=== PATIENT | male | born 1965 | race Caucasian/White ===

== ENCOUNTER 2024-01-19 14:06 | Outpatient (REF) | payer OTHER, SELFPAY ==
--- NOTE | ~2024-01-19 | XR_ITS ---
EXAMINATION: XR SHOULDER, RIGHT CLINICAL INFORMATION: M25.511 - Pain in right shoulder COMPARISON: None available. TECHNIQUE: Two views of the right shoulder. FINDINGS: Normal bony mineralization. No fracture, dislocation, or suspicious bone lesion. Normal alignment. Glenohumeral joint appears normal. Humeral head is normal in contour. Moderate spurring of the AC joint predominantly superiorly with minimal undersurface spurring. No outlet impingement. The subacromial space is preserved. There is a laterally mildly downsloping acromion. Remainder of the soft tissue and bony structures appear normal. XR/XR shoulder RT min 2V IMPRESSION: 1. Moderate hypertrophic arthropathy of the AC joint with from a superior surface spurring. 2. No acute findings of the right shoulder. Remainder of the exam is normal. Electronically signed by: Lele Sarabia MD 03/28/2024 09:59 AM [facility]
== END 2024-01-19 14:07 | disposition home or self-care (01) ==
LOC: HO.HOSX 14:06
PROVIDERS: PCP Internal Medicine; Visit Provider Orthopaedic Surgery
DX: M25.511 Pain in right shoulder (principal)
CPT/HCPCS: 20610; 73030; J1010

== ENCOUNTER → 2024-01-19 14:10 | Outpatient (BNV) | payer OTHER, SELFPAY | PROVIDERS: PCP Internal Medicine; Visit Provider Radiology Diagnostic Radiology | DX: M19.012 Primary osteoarthritis, left shoulder (principal) | CPT/HCPCS: 73030 ==

== ENCOUNTER 2024-01-19 14:36 | Outpatient (AMB) | payer OTHER, SELFPAY ==
--- NOTE | 2024-01-19 14:38 | MHC.OFFVIS ---
Intake Visit Reasons: Right shoulder pain and weakness Intake Note: Bryan is a 58 year old male who presents with complaints of progressively worsening right shoulder pain and weakness. He did undergo right shoulder arthroscopic surgery approximately 5 years ago. He got fairly good relief from that surgery initially. The patient states that he reaggravated his right shoulder several months ago. Since that time his symptoms have gotten worse. He reports weakness when lifting his right hand above shoulder height. He has tried Tylenol and anti-inflammatory medicines which gave him minimal relief. He has had cortisone injections in the past which gave him only temporary relief. He has also done physical therapy exercises which aggravated his pain. Allergies No Known Allergies Allergy (Verified 01/19/24 14:43) Medication List - Last Reconciled 01/19/24 by Isaac Osuna MD No Known Home Meds Physical Exam Const Other: Well-nourished well-developed very friendly male awake alert and oriented x3 in no acute distress Extrem Other: Bilateral upper extremity examination shows good capillary refill, no skin lesions noted, normal sensation light touch Right shoulder examination shows decreased range of motion when compared to his left shoulder, 4+ out of 5 strength with supraspinatus testing, positive impingement signs, tenderness over his acromioclavicular joint, no instability Office Procedures Joint Injection/Aspiration Joint Injection/Aspiration Primary Site: right shoulder Prep: site was prepped using aseptic technique Injected: 40 mg of, DepoMedrol and 1% plain lidocaine Procedure: The patient tolerated the procedure well Coding 21670 - Large joint Procedure code (CPT) selection complete Results Reviewed Results Reviewed: X-rays of the patient's right shoulder show severe acromioclavicular joint narrowing, a type 2 acromion, no acute bony abnormalities Assessment & Plan Assessment & Plan (1) Right shoulder pain: Code(s): M25.511 - Pain in right shoulder Category: Medical Plan Mr. Thompson presents with right shoulder pain due to impingement syndrome and possible rotator cuff tearing. The risks and benefits of a right shoulder cortisone injection were discussed at length with the patient. The patient wishes to proceed. He tolerated the injection well. I will also send the patient for an MRI of his right shoulder to further evaluate the status of his rotator cuff tendons. I will see him back once the MRI is completed to discuss the findings and treatment options. Feel free to call me at any time should questions regarding his orthopedic management arise. I spent 21 minutes in reviewing the patient's records and imaging studies, seeing the patient and documenting in the medical record. Orders: Orders MR shoulder RT wo con Today M25.511 - Pain in right shoulder XR shoulder RT min 2V Today M25.511 - Pain in right shoulder AMB Joint Injection/Aspiration Today M25.511 - Pain in right shoulder Coding Level of Care Code Est Pt Level 3 (84209) Complex EM visit Add On G2211 Diagnoses Right shoulder pain M25.511 CPT Codes Coding - 24357 Large joint: 54224 - Large joint ([id number])
== END 2024-01-19 15:04 | disposition home or self-care (01) ==
PROVIDERS: Visit Provider Orthopaedic Surgery
DX: M25.511 Pain in right shoulder (principal)
CPT/HCPCS: 20610; 99213

== ENCOUNTER 2024-02-12 10:27 | Outpatient (REF) | payer OTHER, SELFPAY ==
--- NOTE | ~2024-02-12 | MR_ITS ---
EXAMINATION: MR SHOULDER WITHOUT CONTRAST, RIGHT CLINICAL INFORMATION: Pain in right shoulder COMPARISON: X-ray of the right shoulder December 2023 TECHNIQUE: MRI of the shoulder without contrast was performed on a high-field scanner. FINDINGS: ROTATOR CUFF: Supraspinatus and infraspinatus: There is scattered increased signal throughout the supraspinatus and anterior infraspinatus tendon. Findings compatible with a combination of tendinosis and likely small areas of partial tearing but without a clearly measurable defect or tendon retraction. Respective muscles are normal. Teres minor normal. Subscapularis: Mild heterogeneity compatible with tendinosis and perhaps small areas of intrasubstance partial tearing but no measurable defect. Muscle normal. BICEPS: Mild heterogeneity of the intra-articular biceps tendon compatible with tendinosis or minimal intrasubstance partial tearing no transverse defect or tendon retraction. CORACOACROMIAL ARCH: The undersurface of the acromion is curved with no subacromial spur. There is mild to moderate hypertrophic osteoarthritis of the acromioclavicular joint. Bursa: There is increased fluid in the subacromial subdeltoid bursa indicative of a bursitis. LABRUM/CAPSULE: There is heterogeneous increased signal along the base of the posterior labrum extending superiorly inferior. Findings compatible with a nondisplaced labral tear. Remaining portions of labrum intact. GLENOHUMERAL JOINT/MARROW: Mild cartilage heterogeneity along the superior anterior aspect of the humeral head. Glenoid cartilage normal. Overall mild arthrosis. MR/MR shoulder RT wo con IMPRESSION: 1. Moderate abnormality of the supraspinatus and infraspinatus compatible with tendinosis and likely small areas of partial tearing but no clearly measurable defect or tendon retraction. 2. Mild abnormality of the subscapularis compatible with tendinosis and perhaps small areas of intrasubstance partial tearing but no measurable defect. 3. Mild to moderate hypertrophic osteoarthritis of the acromioclavicular joint. 4. Subacromial subdeltoid bursitis. 5. Nondisplaced tear of the posterior labrum. 6. Mild arthrosis of the glenohumeral joint. 7. Tendinosis and/or minimal intrasubstance partial tearing of the biceps tendon Electronically signed by: Carter Cordova MD 02/22/2024 07:24 AM EDT
--- NOTE | ~2024-02-12 | XR_ITS ---
EXAMINATION: PRE-MRI SKULL RADIOGRAPH CLINICAL INDICATION: Pre-MRI screening. COMPARISON: No similar priors. TECHNIQUE: 2 views of the skull. FINDINGS/ XR/XR pre mri screening IMPRESSION: No unexpected radiopaque or metallic foreign bodies. No discrete displaced osseous fractures. Paranasal sinuses are grossly clear. Electronically signed by: Sandra Gaines MD 02/12/2024 10:07 AM EDT
== END 2024-02-12 10:28 | disposition home or self-care (01) ==
LOC: HO.MRI 10:27
PROVIDERS: PCP Internal Medicine; Visit Provider Orthopaedic Surgery
DX: M25.511 Pain in right shoulder (principal)
CPT/HCPCS: 73221

== ENCOUNTER 2024-03-09 15:09 | Outpatient (AMB) | payer OTHER, SELFPAY ==
--- NOTE | 2024-03-09 15:13 | A.OFFVIS_ITS ---
Vital Signs 03/09/24 15:15 Height 5 ft 8.5 in Weight 185 lb BMI 27.7 Intake Visit Reasons: Right shoulder pain Intake Note: Bryan is a 58 year old male who presents with complaints of progressively worsening right shoulder pain. He did undergo shoulder arthroscopic surgery approximately 5 years ago. He got fairly good relief from that surgery initially. The patient states that he aggravated his right shoulder several months ago. Since that time his symptoms have gotten worse. He reports weakness when lifting his right hand above shoulder height. He has tried Ty lenol and anti-inflammatory medicines which gave him minimal relief. He has had cortisone injections in the past which gave him only temporary relief. He has also done physical therapy exercises which aggravated his pain. 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 Physical Exam Vital Signs: BMI result Body Mass Index 27.7 Const Other: Well-nourished well-developed very friendly male awake alert and oriented x3 in no acute distress Extrem Other: Bilateral upper extremity examination shows good capillary refill, no skin lesions noted, normal sensation light touch Right shoulder examination shows slightly decreased range of motion when compared to his left shoulder, 4+ out of 5 strength with supraspinatus testing, positive impingement signs, tenderness over his acromioclavicular joint, no instability Results Reviewed Results Reviewed: MRI of the patient's right shoulder show severe acromioclavicular joint narrowing, a type 2 acromion, signal change within the supraspinatus tendon due to rotator cuff tendinosis versus a small tear Assessment & Plan Assessment & Plan (1) Right shoulder pain: Code(s): M25.511 - Pain in right shoulder Category: Medical Plan Mr. Thompson presents with progressively worsening right shoulder pain due to impingement syndrome, acromioclavicular joint arthritis and rotator cuff tendinosis versus a small full-thickness tear. I had a lengthy discussion with the patient regarding the treatment options. At this point he has failed continued non operative treatments. The risks and benefits of right shoulder surgery were discussed at length with the patient. The patient wishes to proceed with surgery. He will contact my office to pick a surgery date. He will continue with his range of motion exercises in the meantime. He will follow-up as instructed. Feel free to call me at any time should questions regarding his orthopedic management arise. I spent 22 minutes in reviewing the patient's records and imaging studies, seeing the patient and documenting in the medical record. Coding Level of Care Code Est Pt Level 3 (98069) Complex EM visit Add On G2211 Diagnoses Right shoulder pain M25.511
[2024-03-09 15:15] VITALS: BMI 27.7
== END 2024-03-09 15:36 | disposition home or self-care (01) ==
PROVIDERS: PCP Internal Medicine; Visit Provider Orthopaedic Surgery
DX: M25.511 Pain in right shoulder (principal)
CPT/HCPCS: 99213

== ENCOUNTER → 2024-03-09 15:09 | Outpatient (BNVA) | payer OTHER, SELFPAY | PROVIDERS: PCP Internal Medicine; Visit Provider Orthopaedic Surgery ==

== ENCOUNTER 2024-04-28 07:31 | Day surgery (SDC) | payer OTHER, SELFPAY ==
[2024-04-25 09:00] VITALS: BMI 27.7
--- NOTE | 2024-04-27 08:45 | P.CONAN_ITS ---
Documented by User: Patricia Villanueva NP 04/27/24 08:45 HPI - Anesthesia Eval Consult details Narrative: 58yo M for Right Shoulder Arthroscopy distal clavicle excision,acromioplasty,possible Rotator Cuff repair PMFSH Active Problems Active Problems: All Active Problems Right shoulder pain (Acute) Past Medical History Medical History Acromioclavicular joint arthritis Surgical History Surgical History Hx of shoulder surgery Social History Social History Household Members Other:: and mother in law Are you a primary customer care associate to a significant other at home: No Do you presently have visiting nurse or other home services: No Alcohol intake: current Alcohol intake frequency: a few times a week Patient Tobacco Use Status: Former Tobacco user Have you been hit, kicked, punched, or otherwise hurt by someone within the past year? 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 Allergies Allergy/AdvReac Type Severity Reaction Status Date / Time Sulfa (Sulfonamide Allergy Severe Hives Verified 04/28/24 07:45 Antibiotics) Active Medications: Current Medications Cefazolin Sodium/Dextrose (Ancef) 2 gm in 50 mls @ 100 mls/hr IV PREOP ONE Stop: 04/28/24 06:13 Home Medications ?Medication ?Instructions ?Recorded ?Confirmed ?Last Taken ?Type No Known Home Meds 01/19/24 04/25/24 Unknown History Exam Height,Weight and Vital Signs: Height 5 ft 8.5 in Weight 83.915 kg Assessment and Plan Assessment Anesthesia Assessment: Chart Reviewed Documented by User: Gladis Hooper MD 04/28/24 08:07 [facility] Past Medical History Medical History Acromioclavicular joint arthritis Family History Family history of problems with anesthesia: No Surgical History Surgical History Hx of shoulder surgery History of Problems with Anesthesia: No Social History Social History Household Members Other:: and mother in law Are you a primary customer care associate to a significant other at home: No Do you presently have visiting nurse or other home services: No Alcohol intake: current Alcohol intake frequency: a few times a week Patient Tobacco Use Status: Former Tobacco user Have you been hit, kicked, punched, or otherwise hurt by someone within the past year? 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 Allergies Allergy/AdvReac Type Severity Reaction Status Date / Time Sulfa (Sulfonamide Allergy Severe Hives Verified 04/28/24 07:45 Antibiotics) Home Medications ?Medication ?Instructions ?Recorded ?Confirmed ?Last Taken ?Type No Known Home Meds 01/19/24 04/25/24 Unknown History Exam Airway Mallampati Class: II TM Dist: >3cm Neck ROM: Full Heart: rrr Lungs: cta Assessment and Plan Assessment Anesthesia Assessment: Anesthesia Plan Discussed Final Anesthetic Review Family History of Problems with Anesthesia: No History of Problems with Anesthesia: No NPO: Yes ASA Class: II Final Preanesthetic Review: No Changes in Pt Med Stat, Meds/Allgs Chart Reviewed, Consent Obtained/Reviewed and Anes Risks/Benef Reviewed Patient Risk: Low Procedure Risk: Intermediate Anesthetic Plan Anesthetic Plan: GA and Regional Block Disposition: Standard PACU
--- OUTSIDE RECORDS SUMMARY | 2024-04-28 07:33 | XMS_ITS ---
Author Name [facility] Organization Unknown History of Medication Use Medication Directions Dispensed Refills Start Date End Date Stat us lidocaine HCl 10 mg/mL (1 %) injection solution Take 10 mg by injection route. 09/16/2022 active amoxicillin 875 mg-potassium clavulanate 125 mg tablet TAKE 1 TABLET BY MOUTH TWICE DAILY FOR 7 DAYS 10/01/2022 active lidocaine HCl 10 mg/mL (1 %) injection solution Take 10 mg by injection route. 09/16/2022 active triamcinolone acetonide 40 mg/mL suspension for injection Take 40 mg by injection route. 09/16/2022 active lidocaine HCl 10 mg/mL (1 %) injection solution Take 10 mg by injection route. 10/01/2022 active amoxicillin 875 mg-potassium clavulanate 125 mg tablet TAKE 1 TABLET BY MOUTH TWICE DAILY FOR 7 DAYS 09/16/2022 active triamcinolone acetonide 40 mg/mL suspension for injection Take 40 mg by injection route. 10/01/2022 active Allergies Allergen Reaction Severity Comment Documented Date Source Statu s SULFA (SULFONAMIDE ANTIBIOTICS) [facility] Problems Problem Status Onset Date Problem Type Date of Resolution Source Tear of medial meniscus of knee active 2022-09-14 ProblemAct [facility] Pain of right knee joint active 2022-08-27 ProblemAct [facility] Pain of left knee joint active 2022-08-26 ProblemAct [facility] Fat pad syndrome active 2022-07-08 ProblemAct [facility] Left knee pain, unspecified chronicity active EncounterDiagnosisAct [facility] Impingement syndrome of left shoulder region active 2022-07-08 ProblemAct [facility]
[2024-04-28] MEDS: Lactated Ringers 1,000 ML 100 ML IVCONT (07:50)
[2024-04-28 07:59] VITALS: BMI 27.0
[2024-04-28 08:00] VITALS: BP 120/79; PULSE 90; RESP 18; TEMP 36.6; O2SAT 98
[2024-04-28 10:45] VITALS: BP 142/90; PULSE 96; RESP 14; TEMP 36.1; O2SAT 94
[2024-04-28 10:50] VITALS: BP 131/73; PULSE 96; RESP 14; O2SAT 94
--- NOTE | 2024-04-28 10:52 | PM.OP ---
Brief Operative Note Date of Service: 04/28/24 Pre-op diagnosis: Right shoulder impingement syndrome, right shoulder acromioclavicular joint arthritis, right shoulder adhesive capsulitis Post-op diagnosis: same Procedure: Right shoulder diagnostic arthroscopy with right shoulder arthroscopic distal clavicle excision, right shoulder arthroscopic acromioplasty, right shoulder arthroscopic anterior capsular release, right shoulder manipulation under anesthesia Implants: none Surgeon: Isaac Osuna MD Anesthesia: GETA and regional Was an Microwave Radio Technician used for this Procedure?: No Estimated blood loss (mL): 10 Pathology: none sent Condition: stable Disposition: PACU
--- NOTE | 2024-04-28 10:53 | P.OP_ITS ---
Operative Note Operative Note Date of Service: 04/28/24 Narrative: After the patient was identified as Bryan Thompson and his right shoulder was initialed by myself the patient was brought to the holding area where a right shoulder interscalene regional block was performed by the anesthesiologist in routine fashion. The patient was then brought to the operating room where general anesthesia was induced by the anesthesiologist in routine fashion. The patient was given 2 g of IV Ancef preoperatively for infection prophylaxis. Examination under anesthesia of the patient's right shoulder showed decreased passive range of motion when compared to the left shoulder. The patient's right shoulder had passive forward flexion to 120 degrees compared to 170 degrees, external rotation to 30 degrees compared to 60 degrees, and internal rotation to 40 degrees compared to 60 degrees. The patient was gently positioned in the beach chair position with all bony prominences well padded. The patient's right shoulder region and upper extremity were prepped and draped in sterile fashion. A formal time-out was completed. A #11 scalpel blade was used to make a posterior portal 2 cm inferior and 1 cm medial to the posterolateral corner of the acromion. Blunt trocar technique was used to enter the glenohumeral joint in routine fashion. An anterior portal was made just lateral to the coracoid process after proper positioning was confirmed using a spinal needle. Diagnostic arthroscopy showed minimal degenerative changes of the glenoid and humeral head articular surfaces. There was no evidence of rotator cuff tearing. There was no evidence of injury to the biceps tendon or its insertion onto the glenoid. There was inflammation of the anterior joint capsule consistent with adhesive capsulitis. The ArthroCare Wand was then used to perform an anterior capsular release between the inferior border of the biceps tendon and the superior border of the subscapularis tendon. The arthroscope was then placed from the posterior portal into the subacromial space. A lateral portal was made 2 fingerbreadths lateral to the anterior lateral corner of the acromion. The ArthroCare Wand was used to ablate soft tissues along the undersurface of the acromion as well as to excise the coracoacromial ligament. There was a sharp spur along the undersurface of the acromion which was removed using the hooded bur. The arthroscope was then placed into the lateral portal and the acromiop lasty was completed with the bur in the posterior portal using the posterior aspect of the acromion as a cutting block. The ArthroCare Wand was then brought in through the anterior portal and was used to ablate soft tissues along the acromioclavicular joint and distal clavicle. The posterior and superior ligamentous structures were left intact. A distal clavicle excision of 8 mm was performed using the fluted bur. Any remaining bursal tissue was removed using the arthroscopic shaver. The subacromial space was irrigated and then drained. All arthroscopic instruments were removed. A gentle manipulation under anesthesia was then performed. Full passive range of motion was easily attained. The 3 portals were closed with 3-0 nylon interrupted suture. The subacromial space was injected with Marcaine. Dry sterile dressing was placed over all incisions. The patient's right upper extremity was placed into a sling. The patient was awoken and extubated in the operating room. The patient was transferred to the recovery room in stable condition.
[2024-04-28 10:55] VITALS: BP 130/77; PULSE 96; RESP 14; O2SAT 94
[2024-04-28] MEDS: cefTRIAXone sodium 1 GM VIAL IVPUSH (10:56)
[2024-04-28 11:00] VITALS: BP 118/78; PULSE 96; RESP 14; O2SAT 94
[2024-04-28 11:15] VITALS: BP 126/75; PULSE 96; RESP 14; TEMP 36.3; O2SAT 97
== END 2024-04-28 12:01 | disposition home or self-care (01) ==
PROVIDERS: PCP Internal Medicine; Visit Provider Orthopaedic Surgery
PROC: (CPT 29805; principal; 2024-04-28 10:00)
DX: M75.41 Impingement syndrome of right shoulder (principal); M75.01 Adhesive capsulitis of right shoulder; M19.011 Primary osteoarthritis, right shoulder; M25.511 Pain in right shoulder; Z88.2 Allergy status to sulfonamides; Z98.890 Other specified postprocedural states; Z87.891 Personal history of nicotine dependence
CPT/HCPCS: 29824; 29825; 29826; J0131; J0171; J0665; J0690; J0696; J1100; J2003; J2250; J2405; J2704; J2795; J3010

== ENCOUNTER → 2024-04-28 07:31 | Outpatient (BNV) | payer OTHER, SELFPAY | PROVIDERS: PCP Internal Medicine; Visit Provider Orthopaedic Surgery | DX: M75.41 Impingement syndrome of right shoulder (principal); M19.011 Primary osteoarthritis, right shoulder; M75.01 Adhesive capsulitis of right shoulder | CPT/HCPCS: 29824; 29826 ==

== ENCOUNTER 2024-05-10 07:56 | Outpatient (AMB) | payer OTHER, SELFPAY ==
--- NOTE | 2024-05-10 08:07 | MHC.OFFVIS ---
Intake Visit Reasons: PO-Rt Shld 04/28/24 Intake Note: Bryan is a 58 year old male who presents today for a post operative RT Shoulder , DOS 04/28/24 . Patient reports he is doing well, states some soreness as expected. He has concerns of one of his incisions being red and tender. Denies drainage. Allergies Sulfa (Sulfonamide Antibiotics) Allergy (Severe, Verified 05/10/24 08:09) Hives Medication List - Last Reconciled 05/10/24 by Elkin Barnett PA-C oxycodone 10 mg (2 x 5 mg) PO Q4H PRN HPI HPI PO-Rt Shld 04/28/24 DR: Details: 58-year-old male returns to the office today status post right shoulder arthroscopy 04/28/[address] Osuna. He states he is doing well. He has mild discomfort but nothing that is limiting his activities. 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 Incision is clean dry and intact. Neurovascularly intact Results Reviewed Results Reviewed: Brief Operative Note Date of Service: 04/28/24 Pre-op diagnosis: Right shoulder impingement syndrome, right shoulder acromioclavicular joint arthritis, right shoulder adhesive capsulitis Post-op diagnosis: same Procedure: Right shoulder diagnostic arthroscopy with right shoulder arthroscopic distal clavicle excision, right shoulder arthroscopic acromioplasty, right shoulder arthroscopic anterior capsular release, right shoulder manipulation under anesthesia Implants: none Surgeon: Isaac Osuna MD Assessment & Plan Assessment & Plan (1) Impingement syndrome of right shoulder: Code(s): M75.41 - Impingement syndrome of right shoulder Category: Medical (2) Adhesive capsulitis of right shoulder: Code(s): M75.01 - Adhesive capsulitis of right shoulder Category: Medical (3) Arthritis of right acromioclavicular joint: Code(s): M19.011 - Primary osteoarthritis, right shoulder Category: Medical Plan Sutures removed today Steri-Strips applied. I did offer him formal physical therapy which he declined at this time. States he is able to perform exercises at home. I stressed the importance of limiting his overhead activity and repetitive motion for the next 4-6 weeks. 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 He is returning to work today without limitations. He will see us back in 4 weeks with , sooner if needed. Coding Level of Care Code Global (74604) Diagnoses Impingement syndrome of right shoulder M75.41 Adhesive capsulitis of right shoulder M75.01 Arthritis of right acromioclavicular joint M19.011
== END 2024-05-10 08:52 | disposition home or self-care (01) ==
PROVIDERS: PCP Internal Medicine; Visit Provider Physician Assistant
DX: M75.41 Impingement syndrome of right shoulder (principal); M75.01 Adhesive capsulitis of right shoulder; M19.011 Primary osteoarthritis, right shoulder
CPT/HCPCS: 99024

== ENCOUNTER 2024-06-07 08:11 | Outpatient (AMB) | payer OTHER, SELFPAY ==
--- NOTE | 2024-06-07 08:13 | MHC.OFFVIS ---
Vital Signs 06/07/24 08:14 Height 5 ft 8.5 in Weight 180 lb BMI 27.0 Intake Visit Reasons: PO-Rt Shld 04/28/24 DR Intake Note: Bryan is a 58 year old male who presents with complaints of mild intermittent discomfort in his right shoulder after undergoing right shoulder arthroscopic surgery on 04/28/2024. He continues with his home stretching program. He is no longer taking narcotics for his discomfort. Allergies Sulfa (Sulfonamide Antibiotics) Allergy (Severe, Verified 06/07/24 08:14) Hives [facility] Medical History (Updated 05/10/24 @ 08:26 by Elkin Barnett PA-C) Acromioclavicular joint arthritis Surgical History Hx of arthroscopy of left knee Hx of colonoscopy Hx of shoulder surgery Social History Household Members Other:: and mother in law Are you a primary adult live in caregiver to a significant other at home: No Do you presently have visiting nurse or other home services: No Alcohol intake: current Alcohol intake frequency: a few times a week Patient Tobacco Use Status: Former Tobacco user Current occupational status: employed Current occupation: [employer] Physical Exam Vital Signs: BMI result Body Mass Index 27.0 Extrem Other: Right shoulder examination shows almost full range of motion when compared to his left shoulder, mild discomfort with range of motion, 5/5 strength with supraspinatus testing, no instability Assessment & Plan Assessment & Plan (1) Right shoulder pain: Code(s): M25.511 - Pain in right shoulder Category: Medical Plan Mr. Thompson continues to do very well after undergoing right shoulder arthroscopic surgery on 04/28/2024. He will continue with his range of motion exercises. The do's and don'ts of lifting were discussed at length with the patient. Will contact me prior to his follow-up appointment in 2 months should any questions or concerns arise. Feel free to call me at any time should questions regarding his orthopedic management arise. Coding Level of Care Code Global (88360) Diagnoses Right shoulder pain M25.511
[2024-06-07 08:14] VITALS: BMI 27.0
--- OUTSIDE RECORDS SUMMARY | 2024-06-07 08:23 | XMS_ITS | Data Portability ---
Author Organization [place] [facility] Mayra Garcia AONE Saline Address [address] [place] [address] Care Team Providers Care Senior Net Programmer Name Role Phone SIMI CHANEL Primary Care Provider Assessment Encounter Date Assessment Date Assessment LastModified by Organization Details LastModified Time 07/08/2022 07/08/2022 Pleasant 56-year-old male who was seen on 04/08/2022 with a diagnosis of left shoulder impingement syndrome and cortisone injection at that time his symptoms have completely resolved. He will keep an eye on this continue with stretching exercises. We will follow-up on this as needed. Regarding his issue today with his left knee pain likely fat pad impingement syndrome we discussed physical therapy as well as conservative treatment with nonsteroidal anti-inflammatori es versus cortisone injection. He did opt for cortisone injection. This was carried out the patient tolerated the procedure well aftercare instructions were discussed in detail. If he does not show relief in the next few weeks he will call me and we will put an MRI ordering for which I will see him shortly thereafter. If his symptoms worsen he is instructed to contact my office. The patient agrees with the above-noted plan. Additional treatment plan discussed with the patient in detail included the following; - Provider focused nonsteroidal anti-inflammatory regimen (discussed were the pros, cons, benefits and risks as well as any black box warnings) - Analgesic pain medication for pain suppression (discussed were the pros, cons, benefits and risks as well as any black box warnings) - The use of topical pain relieving medication were discussed - The use of ice to decrease inflammation and pain - The use of assistive ambulatory devices for ambulation and fall prevention - Formal specific guided physical therapy program I reviewed my findings at length with the patient today. ? ? ?We discussed the nature and etiology of this problem along with current treatment options. We discussed the expected course and outcomes and what to expect. We also discussed risks and benefits. ? ? ?All of their questions were answered today, and there was exhibited understanding and comprehension of all that was discussed. 10 minutes were spent reviewing previous imaging and charting. ? ? ?10 minutes were spent obtaining patient history. ? ? ?5 minutes were spent on physical exam. ? ? ?5? ? ?minutes were spent explaining diagnosis and assessment. Today's documentation was made using voice recognition software. This note may contain grammatical errors secondary to the software. Not available 07/08/2022 14:51:16 08/26/2022 08/26/2022 57-year-old male treated for fat pad impingement syndrome on 07/08/2022 of the right knee. Patient states noted minimal improvement. I did discuss formal physical therapy. 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 I will send him for an MRI of the right knee. I will have him follow-up with me afterwards. If this appears to be surgical in nature I will have him see Dr. De La Garza. He can employ the below noted treatment modalities below. He agrees with the above-noted plan. He will call me if his symptoms worsen. Patient understands he may have to attend formal physical therapy if his insurance denies the MRI request. Indirect care and treatment in conjunction with Dr. Canas Additional treatment plan discussed with the patient in detail included the following; - Provider focused nonsteroidal anti-inflammatory regimen (discussed were the pros, cons, benefits and risks as well as any black box warnings) in patients over 60 years old they should be very cautious in taking these medications due to potential decreased kidney function and or elevated blood pressure. - Analgesic pain medication for pain suppression (discussed were the pros, cons, benefits and risks as well as any black box warnings) - The use of topical pain relieving medication were discussed - The use of ice to decrease inflammation and pain - The use of assistive ambulatory devices for ambulation and fall prevention - Formal specific guided physical therapy program I reviewed my findings at length with the patient today. ? ? ?We discussed the nature and etiology of this problem along with current treatment options. We discussed the expected course and outcomes and what to expect. We also discussed risks and benefits. ? ? ? All of their questions were answered today, and there was exhibited understanding and comprehension of all that was discussed. 10 minutes were spent reviewing previous imaging and charting. ? ? ?10 minutes were spent obtaining patient history. ? ? ?5 minutes were spent on physical exam. ? ? ?5? ? ?minutes were spent explaining diagnosis and assessment. Today's documentation was made using voice recognition software. This note may contain grammatical errors secondary to the software. Not available 08/27/2022 16:37:05 09/14/2022 09/14/2022 This is a pleasant 57-year-old male with ongoing left knee pain he has failed conservative management. He had an MRI done that was conducted on 08/31/2022 with findings consistent medial meniscus tear with Meniscal cysts, mucoid ACL without obvious rupture. Due to his findings I will have him see Dr. De La Garza for first-time surgical consultation. We did discuss protective measures with knee sleeve versus brace. He is taking a course of nonsteroidal anti-inflammatori es which does give him some relief. Patient agrees with the above-noted plan. Surgical determination will be deemed by Dr. De La Garza. Patient agrees with the above-noted plan. Indirect care and treatment in conjunction with Dr. Canas Additional treatment plan discussed with the patient in detail included the following; - Provider focused nonsteroidal anti-inflammatory regimen (discussed were the pros, cons, benefits and risks as well as any black box warnings) in patients over 60 years old they should be very cautious in taking these medications due to potential decreased kidney function and or elevated blood pressure. - Analgesic pain medication for pain suppression (discussed were the pros, cons, benefits and risks as well as any black box warnings) - The use of topical pain relieving medication were discussed - The use of ice to decrease inflammation and pain - The use of assistive ambulatory devices for ambulation and fall prevention - Formal specific guided physical therapy program I reviewed my findings at length with the patient today. ? ? ?We discussed the nature and etiology of this problem along with current treatment options. We discussed the expected course and outcomes and what to expect. We also discussed risks and benefits. ? ? ? All of their questions were answered today, and there was exhibited understanding and comprehension of all that was discussed. Time Spent: 10 minutes were spent reviewing previous imaging and charting. ? ? ?10 minutes were spent obtaining patient history. ? ? ?5 minutes were spent on physical exam. ? ? ?5? ? ?minutes were spent explaining diagnosis and assessment. Today's documentation was made using voice recognition software. This note may contain grammatical errors secondary to the software. Not available 09/14/2022 16:22:50 09/28/2022 09/28/2022 Nonspecific left knee pain. Pertinent history of a prior arthroscopy back in 2018 for what was likely a medial meniscus tear. His current symptomatology is more lateral and posterior, I am not convinced that the changes we are seeing in the medial meniscus on the MRI are contributory to his current symptoms. At this point I would like him to see if he can obtain his MRI from 2018 so we can see if the mucoid degeneration of the ACL and ganglion cyst was present at that point. If it was not, prior to any consideration of surgical intervention I would have him see my colleague, Brendon Jeter for an opinion to make sure that this is not something more concerning. Questions invited and answered. Greater than 30 minutes was spent with the encounter today, including face to face time with the patient, documentation, review of records/imaging if applicable, and coordination of care. PRIOR BK: This is a pleasant 57-year-old male with ongoing left knee pain he has failed conservative management. He had an MRI done that was conducted on 08/31/2022 with findings consistent medial meniscus tear with Meniscal cysts, mucoid ACL without obvious rupture. Due to his findings I will have him see Dr. De La Garza for first-time surgical consultation. We did discuss protective measures with knee sleeve versus brace. He is taking a course of nonsteroidal anti-inflammatori es which does give him some relief. Patient agrees with the above-noted plan. Surgical determination will be deemed by Dr. De La Garza. Patient agrees with the above-noted plan. [email or web address] Not available 09/28/2022 12:53:04 Plan of Treatment Reminders Order Date Submit Date Provider Last Modified By Organization Details Last Modified Time Details Appointments None recorded. Lab None recorded. Referral None recorded. Procedures None recorded. Surgeries knee arthroscopy (SURG) 2022 023 [email or web address] Not available 4 10:48:16 Imaging XR, knee, 3 view 2022 023 [email or web address] [facility], [address], [address], [place], [address], 3 16:22:15 MRI, knee, w/o contrast - Left knee pain failed conservativ e management 2022 023 TRANG [facility], [address] [place], [address], 15:42:19 Medication Orders triamcinolo ne acetonide 40 mg/mL suspension for injection 2022 [id number], [address], [place], [id number], 14:46:11 lidocaine HCl 10 mg/mL (1 %) injection solution 2022 023 [place] [address] [id number], [address], [place], [id number], 14:46:11 Patient TargetsNo targets recorded. Patient Instructions Encounter Date Encounter Id Patient Instructions Last Modified By Organization Details Last Modified Time 07/08/2022 [id number] You have been provided with a cortisone injection in order to reduce the pain and inflammation that you are experiencing. The injection consists of two medications. Cortisone (an anti-inflammatory that will take 48-72 hours to take effect) and Lidocaine (a numbing agent that will last 2-3 hours). Please note that not everyone will have a lasting response following the injection. PATIENT INSTRUCTIONS Once the Lidocaine wears off, you may have an increase in your pain. I recommend icing the affected area for 20 minutes 3-4 times per day. It is recommended that you refrain from any high level activities using the joint or limb that was injected for approximately 24-48 hours. Normal day-to-day activities are generally not a problem. POSSIBLE SIDE EFFECTS Individuals with dark complexions may experience some skin discoloration locally at the site of the injection. There is the possibility of an increase in discomfort within 48 hours following the injection. This is called a ? f lare? . To help minimize the chances of this, please see the post-injection instructions above. There is a less than 1% chance of an infection. If you notice any signs of infection (redness, warmth, drainage, fever greater than 100 degrees) please call our office or contact us through the portal LILLIAM. Not available 07/08/2022 14:42:56 Three-view x-ray of the left knee reveals overall well-maintained joint space mild subchondral sclerosis within the tibiofemoral compartment on AP view, enthesopathy at the patella and mild patellofemoral joint space narrowing. No acute bony abnormality. Normal bone mineralization. Not available 07/08/2022 14:17:09 Reason for Referral None Reported. Results Created Date Observation Date Name Description Value Unit Range Abnormal Flag Note LastModifiedBy Organization Detail LastModifiedTime 09/16/19 MRI, knee, w/o contr ast No observ ation record ed. [email or web address] Not Available 09/15 13:00:41 09/29/19 MRI, knee, w/o contr ast No observ ation record ed. [email or web address] [facility] [address] [place], [address], 09/28/2022 15:42:19 Result Notes None recorded. Problems Name Problem SNOMED Code Status Onset Date Resolution Date Notes Provider Name and Address Organization Details Recorded Time Impingement syndrome of left shoulder region 1336165844064 04 Active 2022 KAIDEN CHAPMAN PA-C [address], [place], [address], [place] [facility] 3 13:32:29 Fat pad syndrome 608098722 Active 2022 KAIDEN CHAPMAN PA-C [address], [place], [address], [place] [facility], [facility] 3 14:39:06 Pain of left knee region 5083925901297 09 Active 2022 KAIDEN CHAPMAN PA-C [address], [place], [address], [place] [facility], [facility] 3 14:39:14 Pain of left knee joint 9641006629424 07 Active 2022 KAIDEN CHAPMAN PA-C [address], [place], [address], [place] [facility], [facility] 3 15:47:32 Pain of right knee joint 9192495179910 00 Active 2022 KAIDEN CHAPMAN PA-C [address], [place], [address], [place] [facility], [facility] 3 16:37:16 Tear of medial meniscus of knee 829676377 Active 2022 KAIDEN CHAPMAN PA-C [address], [place], [address], [place] [facility], [facility] 3 16:23:09 Problem Notes None recorded. Procedures Surgical History Date Name Laterality Status Provider Name and Address Organization Details Recorded Time Knee Joint/Bursa Asp & Inj completed KAIDEN CHAPMAN PA-C [address], [place], [address], [place] [facility] 07/08/2022 14:42:18 Knee Surgery completed Monique Taylor [place] [facility] 07/06/2022 14:52:42 Shoulder Surgery completed Monique Taylor [place] [facility] 07/06/2022 14:52:54 Imaging Results Imaging Date Name Status [facility] by [facility] Details LastModified Time 09/15/2022 MRI, knee, w/o contrast completed [email or web address] Information not available 09/15/2022 13:00:41 09/28/2022 MRI, knee, w/o contrast completed [email or web address] [place] [address], [place], [address], 09/28/2022 15:42:19 Procedure Notes None recorded. Medical Equipment None Reported. Allergies Allergen ID Allergen Name Allergen Category Reaction Reaction Severity Criticality Documentation Date Start Date Code Code System Note Provider Name and Address Organization Details Recorded Time 33 Substance with sulfonami de structure and antibacte rial mechanism of action (substanc e) medicatio n Not available Not available Not available 07/06/2022 39956 8003 SNOMED Monique cadena, [place] - [facility] 14:47:47 Medications Name Sig Start Date Stop Date Status Note LastModified by Organization Details LastModified Time lidocaine HCl 10 mg/mL (1 %) injection solution Take 10 mg by injection route. 2022 active Not Available Not Available Not Avai lable triamcinolone acetonide 40 mg/mL suspension for injection Take 40 mg by injection route. 2022 active Not Available Not Available Not Avai lable amoxicillin 875 mg-potassium clavulanate 125 mg tablet TAKE 1 TABLET BY MOUTH TWICE DAILY FOR 7 DAYS active Not Available Not Available No t Available Vitals Date Recorded Body height Provider Name an d Address Organization Details Last Updated DateTime 09/14/2022 175.26 cm Stormy Montgomery [place] [facility] 09/14/2022 15:11:21 Date Recorded Body height Body mass index (BMI) Body weight Provider Name and Address Organization Details Last Updated DateTime 09/28/2022 175.26 cm 27.3 kg/m2 89405.59 g Magalys Ventura [place] - [facility] 09/28/2022 09:46:48 Social History None recorded. Functional Status None recorded. Mental Status None recorded. Family History Relationship Description Onset Age of this Age Resolved Age Notes LastModified by Organization Details LastModified Time Mother Family history of malignant neoplasm [email or web address] Not available 2022 14:53:28 Medical History Condition Response Coronary Artery Disease N Gout N Hyperthyroidism N Blood Transfusion N MRSA N Emphysema N Hypothyroidism N Depression N COPD N Pacemaker N Vascular Disease N Gastrointestinal Disease N Anxiety Disorder N Autoimmune disease N Arthritis N Cancer N Stroke N High Cholesterol N Neurologic Disorder N Liver Disease N Organ Transplant N Rheumatoid Arthritis N Arrhythmia N Fibromyalgia N Kidney Disease N Allergies/Hayfever N Adverse Reaction to Anesthesia N Thyroid Problems N Anemia N Brain Injury N Heart Attack (RI) N Osteopenia N Diabetes N Bleeding Disorder N Seizures/Epilepsy N AIDS/HIV N Congestive Heart Failure (CHF) N Asthma N Amputation N Reflux/GERD N Sleep Apnea N Hepatitis N Aneurysm N Heart Disease N Pulmonary Embolism N Hypertension N Osteoporosis N Gynecological HistoryNo gynecological history recorded. Obstetrics History GPAL:G 0 P 0 0 0 0 Past Encounters Encounter ID Performer Location Encounter Start Date Encounter Closed Date Diagnosis/Indication Diagnosis SNOMED-CT Code Diagnosis ICD10 Code Diagnosis Note [id number] [address] [address] 07/08/2022 13:48:10 07/08/2022 14:37:37 Impingement syndrome of left shoulder region 9974263666 59662 M75.42 Resolved Pain of le ft knee joint 5902576424 99696 M25.562 Fat pad syndrome 7859259 03 E65 Pain of le ft knee region 2387648717 04479 M25.562 [id number] MD IHSAN Edwards [facility] [address] [address] 08/26/2022 15:08:39 08/26/2022 15:49:25 Pain of left knee joint 0763637002 90422 M25.562 Pain of ri ght knee joint 4394724383 65897 M25.561 [id number] MD IHSAN Edwards [address] [address] 09/14/2022 15:09:03 09/14/2022 15:25:21 Tear of medial meniscus of knee 350589161 S83.242D [id number] MD IHSAN George Gaylord [address] [facility] [address] [place] [address] 09/28/2022 09:37:47 09/28/2022 10:14:26 Pain of left knee joint 5875767713 03553 M25.562 Health Concerns Section Related Observation LastModified by Organization Detai ls LastModified Time None Recorded Concern Status LastModified by Organization Details LastModified Time None Recorded Advance Directives Directive None Recorded Payers Encounter Date Sequence Insurance Name Policy Number Policy Franks Covered Member ID Franks Member ID Guarantor Name 07/08/2022 1 [facility] [id number] Vivian Thompson [id number] Josias Thompson 08/26/2022 1 [facility] [id number] Vivian Thompson [id number] Josias Thompson 09/14/2022 1 [facility] [id number] Vivian Thompson [id number] Josias Thompson 09/28/2022 1 [facility] [id number] Vivian Thompson [id number] Josias Thompson Notes Date Note Type Note Provider Name and Address Organization Details Recorded Time 07/08/2022 text/html Assessment and P sarita: Date of visit 2Diagnosis #1 left shoulder impingement syndrome.? ? ?I had a lengthy discussion with the patient during management including conservative treatment options. Patient opted for cortisone injection of the left shoulder at today's visit. After verbal consent was obtained. The procedure was carried out. The patient tolerated the procedure well with decreased discomfort. Aftercare instructions were discussed in detail.? ? ?If the patient symptoms not improve in the next 4 weeks he will call me to order an MRI otherwise I will see him back in 3 months time for repeat clinical exam. Patient agrees with the above-noted plan.? ? ? HPI:This is a pleasant 56-year-old male initially seen on 04/08/2020 to with a diagnosis of left shoulder impingement syndrome. He was treated with cortisone injection at that time which gave him good satisfactory relief. He is here for follow-up. Patient states asymptomatic on the left shoulder. Has complaint of left knee pain at today's visit.He states history of left knee arthroscopy many years ago by Dr. Osuna. He states it feels similar to when he had a meniscus tear. However he does not state any twisting injury. States certain positions he feels a catching underneath his kneecap. It waxes and wanes. He takes kivy-pry-wcjbgta pain medication for mild symptomatic relief. He denies fevers or chills and warmth overlying the knee joint. X-rays were performed please see under documentation. KAIDEN CHAPMAN PA-C [address] [place] [address],[place] [address], [place], [address], [place] [facility] 08/11/2022 09:11:12 08/26/2022 text/html Assessment & Alo n: Date of visit 3Pleasant 56-year-old male who was seen on 04/08/2022 with a diagnosis of left shoulder impingement syndrome and cortisone injection at that time his symptoms have completely resolved. He will keep an eye on this continue with stretching exercises. We will follow-up on this as needed. Regarding his issue today with his left knee pain likely fat pad impingement syndrome we discussed physical therapy as well as conservative treatment with nonsteroidal anti-inflammatories versus cortisone injection. He did opt for cortisone injection. This was carried out the patient tolerated the procedure well aftercare instructions were discussed in detail. If he does not show relief in the next few weeks he will call me and we will put an MRI ordering for which I will see him shortly thereafter. If his symptoms worsen he is instructed to contact my office. The patient agrees with the above-noted plan. HPI:Since his visit on 07/08/2022 he noted some notable improvement after his cortisone injection within his left knee. States he does have some lingering symptoms otherwise doing well here for follow-up. KAIDEN CHAPMAN PA-C [address] [place] [address], [address], [place] [facility] 08/27/2022 16:37:48 09/14/2022 text/html This is a pleasa 57-year-old male who has had ongoing left knee pain since 07/08/2022. He he had brief relief of discomfort after cortisone injection however he has more mechanical symptoms. 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 I did give him formal exercises from the [facility] for him to do on his own he has not had any improvement. He complains of locking and catching medially within his left knee here for follow-up on MRI results. As noted below I did personally review this. [facility] [email or web address] [place] [id number] Patient: LANGLAIS,JOSIAS /Age/Sex: 1965 - 57 - MUnit#: [id number] Location/Status: SPDRI/REG CLIAccount#: [id number] Mnemonic/Ordering Site: [facility] Physician: KAIDEN CHAPMAN MR Knee LT WO - 08/31/22 -MRI of the left knee - August 31, 2022 at 1902 hoursClinical history: Pain no history of injury.Comparison: None.Technique: Multiplanar, multiecho MRI of the Left knee are submitted forinterpretation.Find ings:There is no fracture or osteonecrosis. The bone marrow signal is normal.There is no joint effusion. There is ill-defined subtle increase in R3gizhsm in the midportion of the patellar cartilage without subchondral changes. The tibiofemoral articular cartilage is grossly unremarkable. Thereis a small joint effusion.Linear oblique signal is seen in the posterior horn of the medial meniscusextending to the body. There is also truncation of the free edge of theposterior horn. 7 x 7 mm multilobulated cystic structure is also seen alongthe posterior aspect of the posterior horn. The lateral meniscus is intact.There is mucoid degeneration of the anterior cruciate ligament with amultilobulated ganglion cyst along the posterior margin of the anteriorcruciate ligament measuring 2.6 x 1.2 cm. The PCL is intact. The medialcollateral ligament and the lateral collateral ligament including the bicepsfemoris tendon, fibular collateral ligament and iliotibial band are alsowithin normal limits. The quadriceps and patellar tendons are intact.Impression:1. No evidence of occult fracture or osteochondral injury.2. Medial meniscal tear with a parameniscal cyst as described. Associatedsmall joint effusion.3. Mucoid degeneration of the ACL with an associated ganglion cyst.4. Other findings described as above.Dictating Physician: ANNE VILLALOBOS MDElectronically Signed by: ANNE VILLALOBOS MDDic Date/Time: 09/01/221657Sign date/Time: 09/01/221657 KAIDEN CHAPMAN PA-C [address] [place] [address], [id number], [place] - [facility] 09/14/2022 16:23:38 09/28/2022 text/html Patient presents for reevaluation of his left knee. His symptoms are predominantly lateral and posterior. He has a significant prior history of an arthroscopy on that knee with Dr. Damico back in 2018 for medially based symptoms. He states he did fine after that surgery. He had an injection which only helped for a couple of hours. He rates his current pain between a 3 to a 5 on a 10 point scale. He has some degree of pain at rest. It seems to be worse with deeper flexion activities. He describes the pain as dull/aching, sharp, and pinching. PRIOR BK:This is a pleasant 57-year-old male who has had ongoing left knee pain since 07/08/2022. He he had brief relief of discomfort after cortisone injection however he has more mechanical symptoms. 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 I did give him formal exercises from the [facility] for him to do on his own he has not had any improvement.He complains of locking and catching medially within his left knee here for follow-up on MRI results. As noted below I did personally review this. Johny De La Garza MD [address], [place], [id number], [place] - [facility] 09/28/2022 12:53:41 OBGyn Episode No OBEpisode recorded.
--- OUTSIDE RECORDS SUMMARY | 2024-06-07 08:23 | XMS_ITS | Clinical Summary ---
Author Organization [facility] Address [address] [place] [address] Phone Care Team Providers Care Header Machine Operator Name Role Phone Ange Dillard Primary Care Provider + Surgical History Surgery Date Site/Laterality Comments SHOULDER SURGERY PROCEDURE:SHOULDER SURGERY KNEE SURGERY PROCEDURE:KNEE SURGERY Family History Medical History Relation Name Comments Cancer Mother Relation Name Status Comments Mother Social History Tobacco Use Types Packs/Day Years Used Date Smoking Tobacco: Former Cigarettes 1 7 0 04/26/1985 - 04/26/1992 Smokeless Tobacco: Never Alcohol Use Standard Drinks/Week Comments Not Currently 2 (1 standard drink = 0.6 oz pur e alcohol) Sex and Gender Information Value Date Recorded Sex Assigned at Not on file Legal Sex Male 10:00 PM EST Gender Identity Not on file Sexual Orientation Not on file Obstetrics History Last Filed Vital Signs Vital Sign Reading Time Taken Comments Blood Pressure - - Pulse - - Temperature - - Respiratory Rate - - Oxygen Saturation - - Inhaled Oxygen Concentration - - Weight 83.9 kg (185 lb) 04/08/2022 10:40 AM EST Height 175.3 cm (5' 9 ) 04/08/2022 10:40 AM EST Body Mass Index 27.32 04/08/2022 10:40 AM EST Plan of Treatment Upcoming Encounters Date Type Department Care Team (Late st Contact Info) Description 06/27/2024 2:00 PM EST Hospital Encounter [facility] [address] [place] [address] Edie Paul MD [address] [id number] Health Maintenance Due Date Last Done Comments DTaP,Tdap,and Td Vaccines (1 - Tdap) 07/22/1986 Hepatitis B Vaccines (1 of 3 - 19+ 3-dose series) 07/22/1986 Zoster Vaccines (1 of 2) 07/22/2017 Cholesterol Screening (Lipid Panel) 06/23/2023 Colorectal Cancer Screening: Colonoscopy 06/23/2023 Depression Screening 06/23/2023 HIV Screening 06/23/2023 Hepatitis C Screening 06/23/2023 Social Influencers of Health Screening 06/23/2023 COVID-19 Vaccine (1 - 2023-2 5 season) 2023 Influenza Vaccine (#1) 2023 HIB Vaccines Aged Out No longer eligi ble based on patient's age to complete this topic HPV Vaccines Aged Out No longer eligi ble based on patient's age to complete this topic Hepatitis A Vaccines Aged Out No long er eligible based on patient's age to complete this topic IPV Vaccines Aged Out No longer eligi ble based on patient's age to complete this topic MMR Vaccines Aged Out No longer eligi ble based on patient's age to complete this topic Meningococcal ACWY Vaccine Aged Out N o longer eligible based on patient's age to complete this topic Pneumococcal Vaccine: Pediat rics (0 to 5 Years) and At-Risk Patients (6 to 64 Years) Aged Out No longer eligible b ased on patient's age to complete this topic RSV Immunization Patients Un josefa 20 months Aged Out No longer eligible b ased on patient's age to complete this topic Varicella Vaccines Aged Out No longer eligible based on patient's age to complete this topic Insurance [facility] Care Teams Header Machine Operator Relationship Specialty Start Date End Date Ange Dillard PA [address] [place] [address] [place] [address] PCP - General 01/06/24
--- OUTSIDE RECORDS SUMMARY | 2024-06-07 08:23 | XMS_ITS | Clinical Summary ---
Author Organization [facility] Address [address] [place] [address] Care Team Providers Care Glass Or Mirror Inspector Name Role Phone Bry Busby Primary Care Provider [phone] Allergies Active Allergy Reactions Criticality Noted Date Comments Sulfa Antibiotics 04/08/2022 Medications No known medications Family History Medical History Relation Name Comments Cancer Mother Relation Name Status Comments Mother Social History Tobacco Use Types Packs/Day Years Used Date Smoking Tobacco: Former Cigarettes 1 1992 Smokeless Tobacco: Never Tobacco Cessation:Counseling Given: Not Answered Alcohol Use Standard Drinks/Week Comments Not Currently 2 (1 standard drink = 0.6 oz pur e alcohol) Sex and Gender Information Value Date Recorded Sex Assigned at Not on file Gender Identity Not on file Sexual Orientation Not on file Job Start Date Occupation Industry Not on file Not on file Not on file Last Filed Vital Signs Vital Sign Reading Time Taken Comments Blood Pressure - - Pulse - - Temperature - - Respiratory Rate - - Oxygen Saturation - - Inhaled Oxygen Concentration - - Weight 83.9 kg (185 lb) 04/08/2022 10:40 AM EST Height 175.3 cm (5' 9 ) 04/08/2022 10:40 AM EST Body Mass Index 27.32 04/08/2022 10:40 AM EST Plan of Treatment Health Maintenance Due Date Last Done Comments Hepatitis B Vaccines (1 of 3 - 3-dose series) 1967 Hepatitis C Screening 1967 COVID-19 Vaccine (#1) 01/23/1968 Depression Screening 1979 BMI Counseling 07/22/1985 Preventative Health Evaluation 07/22/1985 DTap / Tdap / Td (1 - Tdap) 07/22/1986 Cervical Cancer Screening (P ap Smear) 07/22/1988 Colon Cancer Screening (Colonoscopy) 07/22/2012 Breast Cancer Screening (Mammogram) 07/22/2017 Shingrix-Zoster Vaccine (1 of 2) 07/22/2017 Influenza Vaccine (#1) 2023 Pneumococcal Vaccine Aged Out No long er eligible based on patient's age to complete this topic RSV Ped < 20 months Aged Out No longe r eligible based on patient's age to complete this topic Care Teams Glass Or Mirror Inspector Relationship Specialty Start Date End Date Bry Busby DO [address] [place] [id number] PCP - General Internal Medicine 04/02/22
--- OUTSIDE RECORDS SUMMARY | 2024-06-07 08:24 | XMS_ITS | Clinical Summary ---
Author Organization [facility] Address [address] [place] [address] Care Team Providers Care Senior Account Executive Name Role Phone Johny De La Garza MD Primary Care Provider [phone] Social History Tobacco Use Types Packs/Day Years Used Date Smoking Tobacco: Never Assessed Sex and Gender Information Value Date Recorded Sex Assigned at Not on file Gender Identity Not on file Sexual Orientation Not on file Plan of Treatment Health Maintenance Due Date Last Done Comments Hepatitis C Virus Screening 1967 HIV Screening 07/22/1980 DTaP/Tdap/Td Vaccines (1 - Tdap) 07/22/1986 Hepatitis B Vaccines (1 of 3 - 19+ 3-dose series) 07/22/1986 Colonoscopy 07/22/2012 Pneumococcal Vaccines 50+ (1 of 1 - PCV) 07/22/2017 Zoster (Shingles) Vaccine (1 of 2) 07/22/2017 Influenza Vaccine 11/25/2023 COVID-19 Vaccine ( - 2023-2 5 season) 2023 Pneumococcal Vaccine: Pediat pamela (0-5 Years) and At-Risk Patients (6 to 49 Years) Aged Out No longer eligible b ased on patient's age to complete this topic Care Teams Senior Account Executive Relationship Specialty Start Date End Date Johny De La Garza MD PCP - General Surgery, Orthopedic 12/30/22
== END 2024-06-07 08:33 | disposition home or self-care (01) ==
PROVIDERS: PCP Internal Medicine; Visit Provider Orthopaedic Surgery
DX: M25.511 Pain in right shoulder (principal)
CPT/HCPCS: 99024

== ENCOUNTER → 2024-06-07 08:11 | Outpatient (BNVA) | payer OTHER, SELFPAY | PROVIDERS: PCP Internal Medicine; Visit Provider Orthopaedic Surgery ==